=== PATIENT | male | born 1955 | race Caucasian/White ===

== ENCOUNTER 2017-01-31 19:52 | Emergency (ER) | payer OTHER ==
[2017-01-31] MEDS ORDERED: IOPAMIDOL 370 (76%) 100 ML VIAL IV ONE (19:53)
[2017-01-31 20:29] LABS: ABSOLUTE NEUTROPHIL COUNT 4.7 K/mm3 (1.8-7.7); BASO % 0.4 % (0.2-1.0); EOS # 0.2 (0.0-0.5); HEMATOCRIT 44.2 % (32.0-52.0); HEMOGLOBIN 14.3 gm/l (14.0-18.0); IMM NEUT% 0.5 % (0-1); LYMPH # 2.9 (1.0-4.8); MEAN CELL VOLUME 93.8 fl (80.0-94.0); MEAN CORPUSCULAR HEMOGLOBIN 30.4 pg (27.0-31.0); MEAN CORPUSCULAR HGB CONC 32.4 g/dl (33.0-37.0); MEAN PLATELET VOLUME 11.6 fl (7.4-10.4); MONO # 0.6 (0.0-0.8); MONO % 6.9 % (4-12); NEUT % 56.2 % (43-75); PLATELET COUNT 194 K/mm3 (130-400); RED CELL DISTRIBUTION WIDTH 11.6 % (11.5-14.5)
[2017-01-31 20:36] LABS: ALB/GLOB RATIO 1.6 (>1.0); ALBUMIN 4.9 gm/dL (3.5-5.7)
--- NOTE | 2017-01-31 20:40 | CT ---
HEAD CT WITHOUT CONTRAST HISTORY: Left-sided facial droop. No intravenous contrast administered. Contiguous axial images acquired from skull base to vertex. COMPARISON:None. BRAIN VOLUME:Grossly unremarkable for patient age. VENTRICULAR SIZE:No gross ventriculomegaly. FOCAL MASS EFFECT:None. ACUTE INTRACRANIAL HEMORRHAGE:None. CALVARIUM:Grossly intact. VISIBLE PARANASAL SINUSES AND MASTOID AIR CELLS:Grossly clear. IMPRESSION: No gross mass effect, ventriculomegaly, or acute intracranial hemorrhage. Results were electronically transmitted to the electronic medical record at 01/31/2017 at 2036 hours.
--- NOTE | 2017-01-31 20:43 | CT ---
INTRACRANIAL CTA HISTORY: Left-sided facial droop.. Following administration 80 cc Isovue 370 intravenous contrast contiguous axial images acquired from skull base to vertex. Three-dimensional imaging was not performed. POSTERIOR CIRCULATION: No high-grade stenosis or occlusion noted. ANTERIOR CIRCULATION: No high-grade stenosis or occlusion noted. POST CONTRAST IMAGING: No dominant focal enhancing lesion identified. SACCULAR ANEURYSM: none identified. IMPRESSION: Grossly unremarkable intracranial CTA with no proximal order high-grade stenosis or occlusion, or dominant saccular aneurysm, or enhancing brain lesion. Results were electronically transmitted to the electronic medical record at 01/31/2017 at 2039 hours.
[2017-01-31 20:44] LABS: INR 0.96; PARTIAL THROMBOPLASTIN TIME 25.6 SECONDS (24.5-33.0); PROTHROMBIN TIME 10.1 SECONDS (9.3-11.4)
--- NOTE | 2017-01-31 20:48 | CT ---
NECK CTA HISTORY: Left-sided facial droop.. Following the administration of 80 cc of Isovue 370 contiguous axial images were acquired from the level of the thomas to the level of the posterior fossa.. Three-dimensional imaging was not performed. Diameter stenosis was calculated utilizing NASCET criteria. AORTIC ARCH: Unremarkable. Normal caliber.. INNOMINATE AND SUBCLAVIAN ARTERIES: No high-grade stenosis or occlusion.. 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 Dominant right vertebral artery. No high-grade stenosis or occlusion. COMMON CAROTID ARTERIES: No high-grade stenosis or occlusion. INTERNAL CAROTID ARTERIES: No high-grade stenosis or occlusion. SOFT TISSUES: Nonvisualization of the right submandibular gland which may relate to atrophy or postsurgical change. No grossly enlarged lymph nodes.. OSSEOUS STRUCTURES: Prominent focal disc degeneration at the C5-6 level with multilevel facet degeneration of the upper cervical spine. IMPRESSION: 1. No high-grade stenosis or occlusion of the vertebral, common carotid, or internal carotid arteries. 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 2. Nonvisualization of right submandibular gland. No gross cervical adenopathy. 3. Focal disc degeneration at the C5-6 level. Results were electronically transmitted to the electronic medical record at 01/31/2017 at 2043 hours per
--- NOTE | 2017-01-31 20:55 | RAD ---
PORTABLE CHEST RADIOGRAPH HISTORY: Left-sided facial droop. Frontal portable chest radiograph dated 01/31/2017. COMPARISON: 02/13/2013 FINDINGS: FOCAL AIRSPACE OPACITY: No gross airspace consolidation. PLEURAL EFFUSION: None. CARDIOMEDIASTINAL SILHOUETTE: Nonenlarged. PNEUMOTHORAX: None identified. OSSEOUS STRUCTURES: No grossly destructive lesions. IMPRESSION: No acute cardiopulmonary process noted.
== END 2017-01-31 21:39 | disposition short-term general hospital (02) ==
LOC: ED 19:52
DX: R29.810 Facial weakness (principal); I10 Essential (primary) hypertension; J45.909 Unspecified asthma, uncomplicated; E11.9 Type 2 diabetes mellitus without complications
CPT/HCPCS: 85025; 80053; 85730; 85610; 84484; 71010; 70450; 70496; 70498; 99285 ×2; 93005; Q9967